=== PATIENT | male | born 2000 | race African-American/Black ===

== ENCOUNTER 2022-04-20 02:27 | Inpatient (IN) ==
[2022-04-20] MEDS ORDERED: SODIUM CHLORIDE 0.9% 1,000 ML IV STA (03:08)
[2022-04-20] MEDS ORDERED: INSULIN REGULAR 100 UNIT/ML IV STA (03:09)
[2022-04-20 03:46] LABS: Basophils # 0.2 10*3/uL (0.0-0.2); Basophils % 0.7 % (0.0-0.8); Eosinophils % 0.1 % (0.00-10.9); Hematocrit 36.6 VOL% (42.0-52.0); Hemoglobin 12.1 GM/DL (14.0-18.0); Immature Granulocytes % 4.1 %; Immature Granulocytes Absolute 0.99 #; Lymphocytes # 1.6 10*3/uL (1.4-4.0); Lymphocytes % 6.8 % (21.2-54.2); Mean Corpuscular HGB Conc 33.1 GM/DL (32-36); Mean Corpuscular Volume 87.8 FL (87-102); Mean Platelet Volume 9.4 FL (9.6-12.0); Monocytes # 2.8 10*3/uL (0.11-0.8); Monocytes % 11.5 % (1.7-12.7); Neutrophils % 76.8 % (38.7-73.9); Platelet Count 619 T/CUMM (130-400); Red Blood Count 4.17 MC/CUMM (3.8-5.5); Red Cell Distribution Width 12.1 % (9.3-17.3)
[2022-04-20 04:00] LABS: Albumin 1.8 G/DL (3.4-5.0); Bilirubin,Total 0.5 MG/DL (0.20-1.00); Calcium 9.5 MG/DL (8.5-10.1); Osmolality,Calculated 272.9 MOS/KG (273-304); Potassium 4.3 MMOL/L (3.5-5.1); Total Protein 8.5 G/DL (6.4-8.2)
[2022-04-20 04:14] LABS: Arterial Base Excess iSTAT 1 MMOL/L (-2.5-2.5); Arterial Bicarbonate iSTAT 25.4 MMOL/L (20-26); Arterial O2 Saturation iSTAT 96 % (95-100); Arterial PCO2 iSTAT 37 MM HG (35-48); Arterial PO2 iSTAT 79 MM HG (80-95); Arterial Total CO2 iSTAT 26 MMO/L (23-27); Arterial pH iSTAT 7.441 (7.35-7.45)
[2022-04-20 04:21] LABS: Band Neutrophils 1 % (0-10); Lymphocytes 2 % (20-55); Platelet Estimate Increased; Total Cells Counted 100
[2022-04-20 04:22] LABS: Hypochromia Slight; Microcytosis Slight
[2022-04-20] MEDS ORDERED: ONDANSETRON 4 MG/2 ML VIAL IV ONE (04:27)
[2022-04-20] MEDS ORDERED: MORPHINE 2 MG/1 ML SYRINGE IV STA (04:27)
[2022-04-20] MEDS ORDERED: cefTRIAXone 1,000 MG in SODIUM CHLORIDE 0.9% 100 ML IV STA (04:51)
[2022-04-20 05:17] LABS: Mucus,Urine Occasional /LPF (Occasional); Protein,Urine Negative (Negative); RBC,Urine 1 /HPF (0-4); Squamous Epithelial Cell,Urine Occasional /HPF (0-10); Urine Appearance Clear (Clear); Urine Color Yellow (Yellow); Urine pH 5.5 (4.5-8.0)
[2022-04-20 05:18] LABS: Bilirubin,Urine Negative (Negative); Blood, Urine Trace mg/dL (Negative); Glucose,Urine (UA) 500 mg/dL (Negative); Ketones,Urine >=160 mg/dL (Negative); Nitrite,Urine Negative (Negative); Urine Urobilinogen 0.2 eU/dL (<2.0)
[2022-04-20] MEDS ORDERED: VANCOMYCIN INJ 1,000 MG in SODIUM CHLORIDE 0.9% 250 ML IV STA (05:22)
[2022-04-20] MEDS ORDERED: hydrALAZINE 20 MG/1 ML VIAL IV PRN (06:54)
[2022-04-20] MEDS: MORPHINE 2 MG/1 ML SYRINGE IV PRN (08:36)
[2022-04-20] MEDS ORDERED: ceFAZolin 2,000 MG/50 ML DUPLEX IV ONE (08:37)
[2022-04-20] MEDS: SODIUM CHLORIDE 0.9% 1,000 ML IV SCH ×3 (08:37→18:09)
[2022-04-20] MEDS ORDERED: LIDOCAINE 2%/EPI 20 ML VIAL ONE (08:55)
[2022-04-20] MEDS ORDERED: BUPIVACAINE MPF 0.25% 10 ML VIAL ONE (08:55)
[2022-04-20] MEDS ORDERED: ONDANSETRON 4 MG/2 ML VIAL ONE (09:00)
[2022-04-20] MEDS ORDERED: LIDOCAINE 2% 5 ML VIAL ONE (09:00)
[2022-04-20] MEDS ORDERED: propofoL 200 MG/20 ML VIAL IV ONE (09:00)
[2022-04-20] MEDS ORDERED: SEVOFLURANE 1 UNIT/15 MINUTE INH ONE (09:01)
[2022-04-20] MEDS ORDERED: fentaNYL 100 MCG/2 ML VIAL ONE (09:01)
[2022-04-20] MEDS ORDERED: MIDAZOLAM 2 MG/2 ML VIAL ONE (09:01)
[2022-04-20] MEDS ORDERED: ONDANSETRON 4 MG/2 ML VIAL IV PRN (10:25)
[2022-04-20] MEDS ORDERED: HYDROmorphone 1 MG/1 ML SYRINGE IV PRN (10:25)
[2022-04-20] MEDS: INSULIN LISPRO 100 UNIT/ML SUBCUT SCH ×2 (11:33→19:32)
[2022-04-20] MEDS ORDERED: GLUCAGON 1 MG VIAL IM PRN (12:41)
[2022-04-20] MEDS ORDERED: DEXTROSE 10% 250 ML BAG IV PRN (12:46)
[2022-04-20] MEDS: PIPERACILLIN/TAZOBACTAM 3,375 MG in SODIUM CHLORIDE 0.9% 100 ML IV SCH ×2 (14:21→23:14)
[2022-04-20] MEDS: PANTOPRAZOLE 40 MG TABLET PO SCH (15:50)
[2022-04-20] MEDS: VANCOMYCIN INJ 1,000 MG in SODIUM CHLORIDE 0.9% 250 ML IV SCH (19:29)
[2022-04-20] MEDS: INSULIN GLARGINE 100 UNIT/ML SUBCUT SCH (21:21)
[2022-04-21] MEDS: INSULIN LISPRO 100 UNIT/ML SUBCUT SCH ×5 (00:15→23:06)
[2022-04-21] MEDS: SODIUM CHLORIDE 0.9% 1,000 ML IV SCH ×2 (04:58→19:29)
[2022-04-21 05:18] LABS: Basophils # 0.1 10*3/uL (0.0-0.2); Basophils % 0.5 % (0.0-0.8); Eosinophils # 0.1 10*3/uL (0.0-0.87); Eosinophils % 0.6 % (0.00-10.9); Hematocrit 27.7 VOL% (42.0-52.0); Hemoglobin 9.2 GM/DL (14.0-18.0); Immature Granulocytes % 4.2 %; Immature Granulocytes Absolute 0.93 #; Lymphocytes # 1.6 10*3/uL (1.4-4.0); Lymphocytes % 7.2 % (21.2-54.2); Mean Corpuscular HGB Conc 33.2 GM/DL (32-36); Mean Corpuscular Volume 89.4 FL (87-102); Mean Platelet Volume 9.2 FL (9.6-12.0); Monocytes # 2.2 10*3/uL (0.11-0.8); Monocytes % 9.9 % (1.7-12.7); Neutrophils % 77.6 % (38.7-73.9); Platelet Count 478 T/CUMM (130-400); Red Cell Distribution Width 12.3 % (9.3-17.3); White Blood Count 22.3 T/CUMM (4-12)
[2022-04-21 05:33] LABS: Calcium 8.4 MG/DL (8.5-10.1); Osmolality,Calculated 267.4 MOS/KG (273-304); Potassium 3.6 MMOL/L (3.5-5.1)
[2022-04-21 05:43] LABS: Band Neutrophils 10 % (0-10); Eosinophils 1 % (0-10); Hypochromia Slight; Lymphocytes 5 % (20-55); Total Cells Counted 100
[2022-04-21 05:44] LABS: Microcytosis Slight
[2022-04-21] MEDS: VANCOMYCIN INJ 1,000 MG in SODIUM CHLORIDE 0.9% 250 ML IV SCH ×2 (05:48→20:33)
[2022-04-21] MEDS: PIPERACILLIN/TAZOBACTAM 3,375 MG in SODIUM CHLORIDE 0.9% 100 ML IV SCH ×3 (06:55→22:55)
[2022-04-21] MEDS: MORPHINE 2 MG/1 ML SYRINGE IV PRN (07:37)
[2022-04-21] MEDS ORDERED: MAGNESIUM SULF RIDER 2 GM/50 ML PREMIX IV ONE (09:00)
[2022-04-21] MEDS: PANTOPRAZOLE 40 MG TABLET PO SCH (11:04)
[2022-04-21] MEDS: INSULIN GLARGINE 100 UNIT/ML SUBCUT SCH (20:33)
[2022-04-22 04:50] LABS: Basophils # 0.1 10*3/uL (0.0-0.2); Basophils % 0.5 % (0.0-0.8); Eosinophils # 0.2 10*3/uL (0.0-0.87); Hematocrit 25.3 VOL% (42.0-52.0); Hemoglobin 8.2 GM/DL (14.0-18.0); Immature Granulocytes % 5.4 %; Immature Granulocytes Absolute 1.04 #; Lymphocytes # 1.5 10*3/uL (1.4-4.0); Lymphocytes % 7.8 % (21.2-54.2); Mean Corpuscular HGB Conc 32.4 GM/DL (32-36); Mean Platelet Volume 8.9 FL (9.6-12.0); Monocytes # 1.6 10*3/uL (0.11-0.8); Monocytes % 8.3 % (1.7-12.7); Platelet Count 470 T/CUMM (130-400); Red Blood Count 2.81 MC/CUMM (3.8-5.5); Red Cell Distribution Width 12.4 % (9.3-17.3); White Blood Count 19.4 T/CUMM (4-12)
[2022-04-22 05:22] LABS: Band Neutrophils 4 % (0-10); Eosinophils 2 % (0-10); Lymphocytes 13 % (20-55); Total Cells Counted 100
[2022-04-22 05:23] LABS: Microcytosis Slight
[2022-04-22 05:24] LABS: Calcium 8.3 MG/DL (8.5-10.1); Osmolality,Calculated 274.1 MOS/KG (273-304); Potassium 3.7 MMOL/L (3.5-5.1)
[2022-04-22] MEDS: MORPHINE 2 MG/1 ML SYRINGE IV PRN (05:31)
[2022-04-22] MEDS: INSULIN LISPRO 100 UNIT/ML SUBCUT SCH ×3 (06:46→17:00)
[2022-04-22] MEDS: PIPERACILLIN/TAZOBACTAM 3,375 MG in SODIUM CHLORIDE 0.9% 100 ML IV SCH (06:47)
[2022-04-22] MEDS: SODIUM CHLORIDE 0.9% 1,000 ML IV SCH ×2 (08:49→21:46)
[2022-04-22] MEDS: PANTOPRAZOLE 40 MG TABLET PO SCH (08:49)
[2022-04-22] MEDS: VANCOMYCIN INJ 1,000 MG in SODIUM CHLORIDE 0.9% 250 ML IV SCH (09:04)
[2022-04-22] MEDS: ceFAZolin 2,000 MG/50 ML DUPLEX IV SCH ×2 (14:35→21:44)
[2022-04-22] MEDS: SODIUM HYPOCHLORITE 0.25% IRRIG 473 ML BOTTLE TOP SCH (15:25)
[2022-04-22] MEDS: ACETAMINOPHEN 325 MG TABLET PO PRN (16:56)
[2022-04-22] MEDS: INSULIN GLARGINE 100 UNIT/ML SUBCUT SCH (20:21)
[2022-04-23] MEDS: INSULIN LISPRO 100 UNIT/ML SUBCUT SCH ×5 (00:53→23:33)
[2022-04-23] MEDS: MORPHINE 2 MG/1 ML SYRINGE IV PRN ×4 (02:27→23:18)
[2022-04-23 05:54] LABS: Basophils # 0.1 10*3/uL (0.0-0.2); Basophils % 0.5 % (0.0-0.8); Eosinophils # 0.2 10*3/uL (0.0-0.87); Eosinophils % 1.2 % (0.00-10.9); Hematocrit 25.7 VOL% (42.0-52.0); Hemoglobin 8.1 GM/DL (14.0-18.0); Immature Granulocytes % 5.8 %; Immature Granulocytes Absolute 0.82 #; Lymphocytes # 1.6 10*3/uL (1.4-4.0); Lymphocytes % 10.9 % (21.2-54.2); Mean Corpuscular HGB Conc 31.5 GM/DL (32-36); Mean Corpuscular Volume 92.4 FL (87-102); Mean Platelet Volume 9.1 FL (9.6-12.0); Monocytes # 1.2 10*3/uL (0.11-0.8); Monocytes % 8.5 % (1.7-12.7); Neutrophils % 73.1 % (38.7-73.9); Platelet Count 555 T/CUMM (130-400); Red Blood Count 2.78 MC/CUMM (3.8-5.5); Red Cell Distribution Width 12.7 % (9.3-17.3); White Blood Count 14.3 T/CUMM (4-12)
[2022-04-23 06:17] LABS: Calcium 8.1 MG/DL (8.5-10.1); Osmolality,Calculated 278.4 MOS/KG (273-304); Potassium 3.5 MMOL/L (3.5-5.1)
[2022-04-23] MEDS: ceFAZolin 2,000 MG/50 ML DUPLEX IV SCH ×3 (06:17→21:07)
[2022-04-23 06:22] LABS: Eosinophils 1 % (0-10); Hypochromia Slight; Lymphocytes 17 % (20-55); Microcytosis Slight; Platelet Estimate Increased; Total Cells Counted 100
[2022-04-23] MEDS: PANTOPRAZOLE 40 MG TABLET PO SCH (08:27)
[2022-04-23] MEDS: SODIUM HYPOCHLORITE 0.25% IRRIG 473 ML BOTTLE TOP SCH (08:27)
[2022-04-23] MEDS ORDERED: INSULIN GLARGINE 100 UNIT/ML SUBCUT SCH (21:00)
[2022-04-23] MEDS: SODIUM CHLORIDE 0.9% 1,000 ML IV SCH (23:40)
[2022-04-24] MEDS: MORPHINE 2 MG/1 ML SYRINGE IV PRN ×3 (03:05→14:20)
[2022-04-24 04:41] LABS: Basophils # 0.1 10*3/uL (0.0-0.2); Basophils % 0.5 % (0.0-0.8); Eosinophils # 0.2 10*3/uL (0.0-0.87); Eosinophils % 1.2 % (0.00-10.9); Hematocrit 25.2 VOL% (42.0-52.0); Hemoglobin 7.9 GM/DL (14.0-18.0); Immature Granulocytes % 5.6 %; Immature Granulocytes Absolute 0.72 #; Lymphocytes # 1.6 10*3/uL (1.4-4.0); Lymphocytes % 12.4 % (21.2-54.2); Mean Corpuscular HGB Conc 31.3 GM/DL (32-36); Mean Corpuscular Volume 91.3 FL (87-102); Mean Platelet Volume 8.5 FL (9.6-12.0); Monocytes # 1.2 10*3/uL (0.11-0.8); Monocytes % 9.2 % (1.7-12.7); Neutrophils % 71.1 % (38.7-73.9); Platelet Count 575 T/CUMM (130-400); Red Blood Count 2.76 MC/CUMM (3.8-5.5); Red Cell Distribution Width 12.9 % (9.3-17.3); White Blood Count 12.9 T/CUMM (4-12)
[2022-04-24 05:04] LABS: Osmolality,Calculated 276.5 MOS/KG (273-304); Potassium 3.7 MMOL/L (3.5-5.1)
[2022-04-24] MEDS: ceFAZolin 2,000 MG/50 ML DUPLEX IV SCH ×3 (05:11→21:05)
[2022-04-24 05:28] LABS: Band Neutrophils 3 % (0-10); Hypochromia Slight; Lymphocytes 10 % (20-55); Microcytosis Slight; Myelocytes 1 %; Platelet Estimate Increased; Total Cells Counted 100
[2022-04-24] MEDS: INSULIN LISPRO 100 UNIT/ML SUBCUT SCH ×3 (06:30→17:00)
[2022-04-24] MEDS ORDERED: MAGNESIUM SULF RIDER 2 GM/50 ML PREMIX IV PRN (07:31)
[2022-04-24] MEDS: SODIUM HYPOCHLORITE 0.25% IRRIG 473 ML BOTTLE TOP SCH (08:49)
[2022-04-24] MEDS: PANTOPRAZOLE 40 MG TABLET PO SCH (08:50)
[2022-04-24 09:27] LABS: % Iron Saturation 28.1 % (18-50); Ferritin 1484.6 ng/mL (26-388)
[2022-04-24 09:35] LABS: Folate 8.08 NG/ML (5.38-24.0)
[2022-04-24] MEDS: MAGNESIUM SULF RIDER 4 GM/100 ML PREMIX IV PRN (10:11)
[2022-04-24] MEDS: INSULIN GLARGINE 100 UNIT/ML SUBCUT SCH ×2 (10:11→20:47)
[2022-04-25] MEDS: INSULIN LISPRO 100 UNIT/ML SUBCUT SCH ×4 (00:07→18:26)
[2022-04-25 05:11] LABS: Basophils # 0.1 10*3/uL (0.0-0.2); Basophils % 0.8 % (0.0-0.8); Eosinophils # 0.2 10*3/uL (0.0-0.87); Eosinophils % 1.2 % (0.00-10.9); Hematocrit 25.2 VOL% (42.0-52.0); Immature Granulocytes % 6.1 %; Immature Granulocytes Absolute 0.85 #; Mean Corpuscular HGB Conc 31.7 GM/DL (32-36); Mean Corpuscular Volume 93.3 FL (87-102); Mean Platelet Volume 8.9 FL (9.6-12.0); Monocytes # 1.5 10*3/uL (0.11-0.8); Monocytes % 10.6 % (1.7-12.7); Neutrophils % 67.3 % (38.7-73.9); Platelet Count 709 T/CUMM (130-400); White Blood Count 13.9 T/CUMM (4-12)
[2022-04-25 05:29] LABS: Calcium 8.2 MG/DL (8.5-10.1); Osmolality,Calculated 278.4 MOS/KG (273-304); Potassium 3.8 MMOL/L (3.5-5.1)
[2022-04-25 05:43] LABS: Band Neutrophils 1 % (0-10); Eosinophils 2 % (0-10); Lymphocytes 13 % (20-55); Metamyelocytes 1 %; Myelocytes 1 %; Total Cells Counted 100
[2022-04-25 05:44] LABS: Hypochromia Slight; Microcytosis Slight; Polychromasia Slight
[2022-04-25] MEDS: ceFAZolin 2,000 MG/50 ML DUPLEX IV SCH ×3 (06:05→21:21)
[2022-04-25] MEDS: MORPHINE 2 MG/1 ML SYRINGE IV PRN ×2 (09:14→21:21)
[2022-04-25] MEDS: PANTOPRAZOLE 40 MG TABLET PO SCH (09:34)
[2022-04-25] MEDS: SODIUM HYPOCHLORITE 0.25% IRRIG 473 ML BOTTLE TOP SCH (10:14)
[2022-04-25] MEDS: INSULIN GLARGINE 100 UNIT/ML SUBCUT SCH ×2 (11:29→21:20)
[2022-04-26] MEDS: MORPHINE 2 MG/1 ML SYRINGE IV PRN ×3 (01:17→18:32)
[2022-04-26 05:04] LABS: Basophils # 0.1 10*3/uL (0.0-0.2); Basophils % 0.6 % (0.0-0.8); Eosinophils # 0.2 10*3/uL (0.0-0.87); Eosinophils % 1.4 % (0.00-10.9); Hematocrit 26.3 VOL% (42.0-52.0); Hemoglobin 8.3 GM/DL (14.0-18.0); Immature Granulocytes % 6.6 %; Immature Granulocytes Absolute 0.93 #; Lymphocytes # 2.3 10*3/uL (1.4-4.0); Lymphocytes % 16.3 % (21.2-54.2); Mean Corpuscular HGB Conc 31.6 GM/DL (32-36); Mean Corpuscular Volume 93.6 FL (87-102); Mean Platelet Volume 8.5 FL (9.6-12.0); Monocytes # 1.2 10*3/uL (0.11-0.8); Monocytes % 8.4 % (1.7-12.7); Neutrophils % 66.7 % (38.7-73.9); Platelet Count 724 T/CUMM (130-400); Red Blood Count 2.81 MC/CUMM (3.8-5.5); Red Cell Distribution Width 13.1 % (9.3-17.3)
[2022-04-26 05:32] LABS: Calcium 8.2 MG/DL (8.5-10.1); Osmolality,Calculated 274.5 MOS/KG (273-304); Potassium 4.3 MMOL/L (3.5-5.1)
[2022-04-26 05:33] LABS: Eosinophils 3 % (0-10); Hypochromia Slight; Lymphocytes 18 % (20-55); Metamyelocytes 1 %; Microcytosis Slight; Polychromasia Slight; Total Cells Counted 100
[2022-04-26] MEDS: INSULIN LISPRO 100 UNIT/ML SUBCUT SCH ×4 (06:13→18:31)
[2022-04-26] MEDS: ceFAZolin 2,000 MG/50 ML DUPLEX IV SCH ×3 (06:13→21:13)
[2022-04-26] MEDS: INSULIN GLARGINE 100 UNIT/ML SUBCUT SCH ×2 (09:37→21:12)
[2022-04-26] MEDS: PANTOPRAZOLE 40 MG TABLET PO SCH (09:37)
[2022-04-26] MEDS: SODIUM HYPOCHLORITE 0.25% IRRIG 473 ML BOTTLE TOP SCH (12:41)
[2022-04-27] MEDS: INSULIN LISPRO 100 UNIT/ML SUBCUT SCH ×4 (01:47→18:19)
[2022-04-27 04:33] LABS: Basophils # 0.1 10*3/uL (0.0-0.2); Basophils % 0.7 % (0.0-0.8); Eosinophils # 0.2 10*3/uL (0.0-0.87); Eosinophils % 1.8 % (0.00-10.9); Hematocrit 25.8 VOL% (42.0-52.0); Immature Granulocytes % 8.4 %; Immature Granulocytes Absolute 1.03 #; Lymphocytes # 2.4 10*3/uL (1.4-4.0); Lymphocytes % 19.6 % (21.2-54.2); Mean Corpuscular Volume 93.8 FL (87-102); Mean Platelet Volume 8.6 FL (9.6-12.0); Monocytes # 1.1 10*3/uL (0.11-0.8); NRBC # 0.02 10*3/uL; Neutrophils % 60.5 % (38.7-73.9); Platelet Count 757 T/CUMM (130-400); Red Blood Count 2.75 MC/CUMM (3.8-5.5); Red Cell Distribution Width 13.3 % (9.3-17.3); White Blood Count 12.2 T/CUMM (4-12)
[2022-04-27 05:00] LABS: Eosinophils 2 % (0-10); Hypochromia Slight; Lymphocytes 22 % (20-55); Microcytosis Slight; Platelet Estimate Adequate; Total Cells Counted 100
[2022-04-27 05:06] LABS: Calcium 8.2 MG/DL (8.5-10.1); Osmolality,Calculated 276.3 MOS/KG (273-304); Potassium 4.1 MMOL/L (3.5-5.1)
[2022-04-27] MEDS: ceFAZolin 2,000 MG/50 ML DUPLEX IV SCH ×3 (06:07→21:55)
[2022-04-27] MEDS: PANTOPRAZOLE 40 MG TABLET PO SCH (08:38)
[2022-04-27] MEDS: INSULIN GLARGINE 100 UNIT/ML SUBCUT SCH ×2 (08:38→21:51)
[2022-04-27] MEDS: SODIUM HYPOCHLORITE 0.25% IRRIG 473 ML BOTTLE TOP SCH (09:47)
[2022-04-27] MEDS: MORPHINE 2 MG/1 ML SYRINGE IV PRN (21:55)
[2022-04-28] MEDS: INSULIN LISPRO 100 UNIT/ML SUBCUT SCH ×4 (01:39→18:15)
[2022-04-28] MEDS: ceFAZolin 2,000 MG/50 ML DUPLEX IV SCH ×3 (06:01→21:47)
[2022-04-28] MEDS: PANTOPRAZOLE 40 MG TABLET PO SCH (09:11)
[2022-04-28] MEDS: INSULIN GLARGINE 100 UNIT/ML SUBCUT SCH ×2 (09:11→21:48)
[2022-04-28] MEDS: ONDANSETRON 4 MG/2 ML VIAL IV PRN (09:12)
[2022-04-28] MEDS: SODIUM HYPOCHLORITE 0.25% IRRIG 473 ML BOTTLE TOP SCH (09:15)
[2022-04-29] MEDS: INSULIN LISPRO 100 UNIT/ML SUBCUT SCH ×5 (01:43→21:27)
[2022-04-29] MEDS: ceFAZolin 2,000 MG/50 ML DUPLEX IV SCH ×3 (05:26→21:28)
[2022-04-29] MEDS: PANTOPRAZOLE 40 MG TABLET PO SCH (09:08)
[2022-04-29] MEDS: INSULIN GLARGINE 100 UNIT/ML SUBCUT SCH ×2 (09:08→21:26)
[2022-04-29] MEDS: SODIUM HYPOCHLORITE 0.25% IRRIG 473 ML BOTTLE TOP SCH (09:09)
[2022-04-29] MEDS: MENTHOL/ZINC OXIDE OINT 71 GM JAR TOP SCH ×2 (14:56→21:26)
[2022-04-29] MEDS: ENOXAPARIN 40 MG/0.4 ML SYRINGE SUBCUT SCH (16:35)
[2022-04-29] MEDS: MORPHINE 2 MG/1 ML SYRINGE IV PRN (21:26)
[2022-04-29] MEDS: ACETAMINOPHEN 325 MG TABLET PO PRN (21:26)
[2022-04-30] MEDS: MORPHINE 2 MG/1 ML SYRINGE IV PRN (04:11)
[2022-04-30] MEDS: ceFAZolin 2,000 MG/50 ML DUPLEX IV SCH ×3 (05:00→21:03)
[2022-04-30] MEDS: ONDANSETRON 4 MG/2 ML VIAL IV PRN ×3 (05:24→21:57)
[2022-04-30 06:11] LABS: Basophils # 0.1 10*3/uL (0.0-0.2); Basophils % 0.9 % (0.0-0.8); Eosinophils # 0.3 10*3/uL (0.0-0.87); Eosinophils % 2.5 % (0.00-10.9); Hematocrit 25.7 VOL% (42.0-52.0); Hemoglobin 7.9 GM/DL (14.0-18.0); Immature Granulocytes % 4.7 %; Immature Granulocytes Absolute 0.48 #; Lymphocytes # 2.2 10*3/uL (1.4-4.0); Lymphocytes % 21.7 % (21.2-54.2); Mean Corpuscular HGB Conc 30.7 GM/DL (32-36); Mean Corpuscular Volume 95.5 FL (87-102); Mean Platelet Volume 8.6 FL (9.6-12.0); Monocytes # 0.7 10*3/uL (0.11-0.8); Monocytes % 6.4 % (1.7-12.7); Neutrophils % 63.8 % (38.7-73.9); Platelet Count 762 T/CUMM (130-400); Red Blood Count 2.69 MC/CUMM (3.8-5.5); Red Cell Distribution Width 14.3 % (9.3-17.3); White Blood Count 10.1 T/CUMM (4-12)
[2022-04-30 06:18] LABS: Calcium 8.9 MG/DL (8.5-10.1); Osmolality,Calculated 278.4 MOS/KG (273-304)
[2022-04-30 07:52] LABS: % Iron Saturation 14.3 % (18-50); Ferritin 539.7 ng/mL (26-388)
[2022-04-30] MEDS: INSULIN GLARGINE 100 UNIT/ML SUBCUT SCH ×2 (09:06→20:58)
[2022-04-30] MEDS: PANTOPRAZOLE 40 MG TABLET PO SCH (09:06)
[2022-04-30] MEDS: INSULIN LISPRO 100 UNIT/ML SUBCUT SCH ×4 (09:07→21:00)
[2022-04-30] MEDS: MENTHOL/ZINC OXIDE OINT 71 GM JAR TOP SCH ×2 (09:09→21:00)
[2022-04-30] MEDS: SODIUM HYPOCHLORITE 0.25% IRRIG 473 ML BOTTLE TOP SCH (09:09)
[2022-04-30] MEDS: FERROUS SULFATE 325 MG TABLET PO SCH ×2 (14:04→20:57)
[2022-04-30] MEDS: ENOXAPARIN 40 MG/0.4 ML SYRINGE SUBCUT SCH (16:19)
[2022-05-01] MEDS: ceFAZolin 2,000 MG/50 ML DUPLEX IV SCH ×3 (06:32→22:01)
[2022-05-01] MEDS: INSULIN LISPRO 100 UNIT/ML SUBCUT SCH ×4 (08:07→22:02)
[2022-05-01 08:52] LABS: Basophils # 0.1 10*3/uL (0.0-0.2); Basophils % 0.9 % (0.0-0.8); Eosinophils # 0.2 10*3/uL (0.0-0.87); Hemoglobin 8.4 GM/DL (14.0-18.0); Immature Granulocytes % 2.3 %; Lymphocytes # 1.5 10*3/uL (1.4-4.0); Lymphocytes % 17.8 % (21.2-54.2); Mean Corpuscular HGB Conc 31.1 GM/DL (32-36); Mean Corpuscular Volume 94.7 FL (87-102); Mean Platelet Volume 8.2 FL (9.6-12.0); Monocytes # 0.5 10*3/uL (0.11-0.8); Monocytes % 5.5 % (1.7-12.7); Neutrophils % 71.5 % (38.7-73.9); Platelet Count 679 T/CUMM (130-400); Red Blood Count 2.85 MC/CUMM (3.8-5.5); Red Cell Distribution Width 14.6 % (9.3-17.3); White Blood Count 8.7 T/CUMM (4-12)
[2022-05-01 09:13] LABS: Calcium 8.4 MG/DL (8.5-10.1); Osmolality,Calculated 281.3 MOS/KG (273-304); Potassium 3.9 MMOL/L (3.5-5.1)
[2022-05-01] MEDS: FERROUS SULFATE 325 MG TABLET PO SCH (09:17)
[2022-05-01] MEDS: SODIUM HYPOCHLORITE 0.25% IRRIG 473 ML BOTTLE TOP SCH (09:17)
[2022-05-01] MEDS: MENTHOL/ZINC OXIDE OINT 71 GM JAR TOP SCH ×2 (09:17→22:01)
[2022-05-01] MEDS: INSULIN GLARGINE 100 UNIT/ML SUBCUT SCH ×2 (09:17→22:02)
[2022-05-01] MEDS: PANTOPRAZOLE 40 MG TABLET PO SCH (09:18)
[2022-05-01] MEDS ORDERED: MAGNESIUM SULF INJ 3 GM in SODIUM CHLORIDE 0.9% 100 ML IV ONE (09:35)
[2022-05-01] MEDS: MAGNESIUM SULF RIDER 4 GM/100 ML PREMIX IV PRN (09:54)
[2022-05-01] MEDS: ENOXAPARIN 40 MG/0.4 ML SYRINGE SUBCUT SCH (15:29)
[2022-05-01] MEDS: MORPHINE 2 MG/1 ML SYRINGE IV PRN (22:10)
[2022-05-02] MEDS: ceFAZolin 2,000 MG/50 ML DUPLEX IV SCH ×3 (05:02→21:58)
[2022-05-02] MEDS: MORPHINE 2 MG/1 ML SYRINGE IV PRN (05:05)
[2022-05-02 06:21] LABS: Basophils # 0.1 10*3/uL (0.0-0.2); Basophils % 1.2 % (0.0-0.8); Eosinophils # 0.3 10*3/uL (0.0-0.87); Eosinophils % 3.5 % (0.00-10.9); Hematocrit 26.7 VOL% (42.0-52.0); Hemoglobin 8.1 GM/DL (14.0-18.0); Immature Granulocytes Absolute 0.23 #; Lymphocytes # 1.8 10*3/uL (1.4-4.0); Lymphocytes % 23.3 % (21.2-54.2); Mean Corpuscular HGB Conc 30.3 GM/DL (32-36); Mean Platelet Volume 8.3 FL (9.6-12.0); Monocytes # 0.5 10*3/uL (0.11-0.8); Platelet Count 682 T/CUMM (130-400); Red Blood Count 2.78 MC/CUMM (3.8-5.5); Red Cell Distribution Width 14.8 % (9.3-17.3); White Blood Count 7.8 T/CUMM (4-12)
[2022-05-02 06:35] LABS: Calcium 8.7 MG/DL (8.5-10.1); Osmolality,Calculated 281.4 MOS/KG (273-304); Potassium 4.1 MMOL/L (3.5-5.1)
[2022-05-02] MEDS: PANTOPRAZOLE 40 MG TABLET PO SCH (10:51)
[2022-05-02] MEDS: FERRIC GLUCONATE COMPLEX 125 MG in SODIUM CHLORIDE 0.9% 100 ML IV SCH (10:51)
[2022-05-02] MEDS: MENTHOL/ZINC OXIDE OINT 71 GM JAR TOP SCH ×2 (10:52→22:02)
[2022-05-02] MEDS: SODIUM HYPOCHLORITE 0.25% IRRIG 473 ML BOTTLE TOP SCH (10:52)
[2022-05-02] MEDS: INSULIN GLARGINE 100 UNIT/ML SUBCUT SCH ×2 (10:52→22:06)
[2022-05-02] MEDS: INSULIN LISPRO 100 UNIT/ML SUBCUT SCH ×3 (11:33→22:08)
[2022-05-02] MEDS: ENOXAPARIN 40 MG/0.4 ML SYRINGE SUBCUT SCH (15:38)
[2022-05-03] MEDS: MORPHINE 2 MG/1 ML SYRINGE IV PRN ×3 (00:57→21:33)
[2022-05-03] MEDS: ceFAZolin 2,000 MG/50 ML DUPLEX IV SCH ×3 (05:33→21:31)
[2022-05-03 06:18] LABS: Basophils # 0.1 10*3/uL (0.0-0.2); Basophils % 1.1 % (0.0-0.8); Eosinophils # 0.2 10*3/uL (0.0-0.87); Eosinophils % 3.5 % (0.00-10.9); Hematocrit 26.8 VOL% (42.0-52.0); Hemoglobin 8.4 GM/DL (14.0-18.0); Immature Granulocytes % 1.8 %; Immature Granulocytes Absolute 0.12 #; Lymphocytes # 1.7 10*3/uL (1.4-4.0); Lymphocytes % 26.1 % (21.2-54.2); Mean Corpuscular HGB Conc 31.3 GM/DL (32-36); Mean Corpuscular Volume 96.1 FL (87-102); Mean Platelet Volume 8.1 FL (9.6-12.0); Monocytes # 0.5 10*3/uL (0.11-0.8); Monocytes % 6.8 % (1.7-12.7); Neutrophils % 60.7 % (38.7-73.9); Platelet Count 601 T/CUMM (130-400); Red Blood Count 2.79 MC/CUMM (3.8-5.5); Red Cell Distribution Width 14.9 % (9.3-17.3); White Blood Count 6.6 T/CUMM (4-12)
[2022-05-03 06:36] LABS: Calcium 8.5 MG/DL (8.5-10.1); Osmolality,Calculated 279.1 MOS/KG (273-304); Potassium 3.9 MMOL/L (3.5-5.1)
[2022-05-03] MEDS: INSULIN LISPRO 100 UNIT/ML SUBCUT SCH ×4 (08:18→21:32)
[2022-05-03] MEDS: MENTHOL/ZINC OXIDE OINT 71 GM JAR TOP SCH (09:45)
[2022-05-03] MEDS: PANTOPRAZOLE 40 MG TABLET PO SCH (09:45)
[2022-05-03] MEDS: SODIUM HYPOCHLORITE 0.25% IRRIG 473 ML BOTTLE TOP SCH (09:45)
[2022-05-03] MEDS: FERRIC GLUCONATE COMPLEX 125 MG in SODIUM CHLORIDE 0.9% 100 ML IV SCH (09:45)
[2022-05-03] MEDS: INSULIN GLARGINE 100 UNIT/ML SUBCUT SCH ×2 (09:45→21:31)
[2022-05-03] MEDS: ENOXAPARIN 40 MG/0.4 ML SYRINGE SUBCUT SCH (15:30)
[2022-05-04] MEDS: MENTHOL/ZINC OXIDE OINT 71 GM JAR TOP SCH ×3 (00:30→22:04)
[2022-05-04 04:40] LABS: Basophils # 0.1 10*3/uL (0.0-0.2); Basophils % 1.1 % (0.0-0.8); Eosinophils # 0.3 10*3/uL (0.0-0.87); Eosinophils % 4.1 % (0.00-10.9); Hematocrit 27.5 VOL% (42.0-52.0); Hemoglobin 8.4 GM/DL (14.0-18.0); Immature Granulocytes % 2.1 %; Immature Granulocytes Absolute 0.14 #; Lymphocytes # 2.2 10*3/uL (1.4-4.0); Lymphocytes % 32.8 % (21.2-54.2); Mean Corpuscular HGB Conc 30.5 GM/DL (32-36); Mean Corpuscular Volume 97.5 FL (87-102); Mean Platelet Volume 8.2 FL (9.6-12.0); Monocytes # 0.5 10*3/uL (0.11-0.8); Monocytes % 7.8 % (1.7-12.7); Neutrophils % 52.1 % (38.7-73.9); Platelet Count 566 T/CUMM (130-400); Red Blood Count 2.82 MC/CUMM (3.8-5.5); Red Cell Distribution Width 14.8 % (9.3-17.3); White Blood Count 6.6 T/CUMM (4-12)
[2022-05-04 04:58] LABS: Calcium 8.7 MG/DL (8.5-10.1); Osmolality,Calculated 282.1 MOS/KG (273-304); Potassium 3.8 MMOL/L (3.5-5.1)
[2022-05-04] MEDS: ceFAZolin 2,000 MG/50 ML DUPLEX IV SCH ×3 (07:23→22:02)
[2022-05-04] MEDS: PANTOPRAZOLE 40 MG TABLET PO SCH (08:36)
[2022-05-04] MEDS: FERRIC GLUCONATE COMPLEX 125 MG in SODIUM CHLORIDE 0.9% 100 ML IV SCH (08:37)
[2022-05-04] MEDS: INSULIN GLARGINE 100 UNIT/ML SUBCUT SCH ×2 (08:37→22:03)
[2022-05-04] MEDS: INSULIN LISPRO 100 UNIT/ML SUBCUT SCH ×4 (08:41→22:02)
[2022-05-04] MEDS: SODIUM HYPOCHLORITE 0.25% IRRIG 473 ML BOTTLE TOP SCH (08:42)
[2022-05-04] MEDS: ENOXAPARIN 40 MG/0.4 ML SYRINGE SUBCUT SCH (17:28)
[2022-05-04] MEDS: MORPHINE 2 MG/1 ML SYRINGE IV PRN (22:04)
[2022-05-05] MEDS: ceFAZolin 2,000 MG/50 ML DUPLEX IV SCH ×3 (06:01→23:25)
[2022-05-05 06:27] LABS: Basophils # 0.1 10*3/uL (0.0-0.2); Basophils % 0.8 % (0.0-0.8); Eosinophils # 0.3 10*3/uL (0.0-0.87); Eosinophils % 3.7 % (0.00-10.9); Hematocrit 28.6 VOL% (42.0-52.0); Hemoglobin 8.9 GM/DL (14.0-18.0); Immature Granulocytes % 1.2 %; Immature Granulocytes Absolute 0.09 #; Lymphocytes # 1.5 10*3/uL (1.4-4.0); Lymphocytes % 21.2 % (21.2-54.2); Mean Corpuscular HGB Conc 31.1 GM/DL (32-36); Mean Corpuscular Volume 95.7 FL (87-102); Mean Platelet Volume 8.5 FL (9.6-12.0); Monocytes # 0.5 10*3/uL (0.11-0.8); Monocytes % 7.3 % (1.7-12.7); Neutrophils % 65.8 % (38.7-73.9); Platelet Count 553 T/CUMM (130-400); Red Blood Count 2.99 MC/CUMM (3.8-5.5); White Blood Count 7.3 T/CUMM (4-12)
[2022-05-05 06:41] LABS: Osmolality,Calculated 280.5 MOS/KG (273-304); Potassium 4.3 MMOL/L (3.5-5.1)
[2022-05-05] MEDS: INSULIN LISPRO 100 UNIT/ML SUBCUT SCH ×4 (08:50→21:03)
[2022-05-05] MEDS: PANTOPRAZOLE 40 MG TABLET PO SCH (08:50)
[2022-05-05] MEDS: FERRIC GLUCONATE COMPLEX 125 MG in SODIUM CHLORIDE 0.9% 100 ML IV SCH (08:50)
[2022-05-05] MEDS: INSULIN GLARGINE 100 UNIT/ML SUBCUT SCH (08:50)
[2022-05-05] MEDS: MENTHOL/ZINC OXIDE OINT 71 GM JAR TOP SCH ×2 (09:19→21:10)
[2022-05-05] MEDS: SODIUM HYPOCHLORITE 0.25% IRRIG 473 ML BOTTLE TOP SCH (09:19)
[2022-05-05] MEDS: ENOXAPARIN 40 MG/0.4 ML SYRINGE SUBCUT SCH (16:16)
[2022-05-05] MEDS: ONDANSETRON 4 MG/2 ML VIAL IV PRN (23:57)
[2022-05-05] MEDS ORDERED: ZALEPLON 5 MG CAPSULE PO ONE (23:57)
[2022-05-06] MEDS: ceFAZolin 2,000 MG/50 ML DUPLEX IV SCH ×3 (05:24→23:07)
[2022-05-06 06:47] LABS: Basophils # 0.1 10*3/uL (0.0-0.2); Basophils % 1.1 % (0.0-0.8); Eosinophils # 0.2 10*3/uL (0.0-0.87); Eosinophils % 4.2 % (0.00-10.9); Hemoglobin 9.2 GM/DL (14.0-18.0); Immature Granulocytes % 1.5 %; Immature Granulocytes Absolute 0.08 #; Lymphocytes # 1.6 10*3/uL (1.4-4.0); Lymphocytes % 30.9 % (21.2-54.2); Mean Corpuscular HGB Conc 30.7 GM/DL (32-36); Mean Corpuscular Volume 96.8 FL (87-102); Mean Platelet Volume 8.5 FL (9.6-12.0); Monocytes # 0.5 10*3/uL (0.11-0.8); Monocytes % 9.5 % (1.7-12.7); Neutrophils % 52.8 % (38.7-73.9); Platelet Count 504 T/CUMM (130-400); Red Cell Distribution Width 15.2 % (9.3-17.3); White Blood Count 5.3 T/CUMM (4-12)
[2022-05-06 07:09] LABS: Platelet Estimate Increased
[2022-05-06 07:10] LABS: Anisocytosis 1+; Hypochromia 1+; Macrocytosis 1+; Tear Drop Cells Few
[2022-05-06 07:17] LABS: Calcium 8.5 MG/DL (8.5-10.1); Osmolality,Calculated 284.3 MOS/KG (273-304); Potassium 4.4 MMOL/L (3.5-5.1)
[2022-05-06] MEDS: INSULIN GLARGINE 100 UNIT/ML SUBCUT SCH (09:14)
[2022-05-06] MEDS: PANTOPRAZOLE 40 MG TABLET PO SCH (09:15)
[2022-05-06] MEDS: INSULIN LISPRO 100 UNIT/ML SUBCUT SCH ×4 (09:15→20:56)
[2022-05-06] MEDS: SODIUM HYPOCHLORITE 0.25% IRRIG 473 ML BOTTLE TOP SCH (09:16)
[2022-05-06] MEDS: MENTHOL/ZINC OXIDE OINT 71 GM JAR TOP SCH ×2 (09:16→20:55)
[2022-05-06] MEDS: ENOXAPARIN 40 MG/0.4 ML SYRINGE SUBCUT SCH (15:03)
[2022-05-06] MEDS ORDERED: ZALEPLON 5 MG CAPSULE PO ONE (22:47)
[2022-05-07] MEDS: ceFAZolin 2,000 MG/50 ML DUPLEX IV SCH (06:09)
[2022-05-07] MEDS: ACETAMINOPHEN 325 MG TABLET PO PRN (06:10)
[2022-05-07 07:36] VITALS: BP 116/72
[2022-05-07] MEDS: SODIUM HYPOCHLORITE 0.25% IRRIG 473 ML BOTTLE TOP SCH (08:33)
[2022-05-07] MEDS: MENTHOL/ZINC OXIDE OINT 71 GM JAR TOP SCH (08:33)
[2022-05-07] MEDS: PANTOPRAZOLE 40 MG TABLET PO SCH (08:54)
[2022-05-07] MEDS: INSULIN GLARGINE 100 UNIT/ML SUBCUT SCH (08:56)
[2022-05-07] MEDS: INSULIN LISPRO 100 UNIT/ML SUBCUT SCH ×2 (08:57→11:43)
== END 2022-05-07 13:04 | disposition home or self-care (01) | DRG 951 ==
LOC: EDBD → EDUNIT# → N.ED 02:27 → SUATTDRO 06:52 → N.EDINP 06:52 → N.3E 08:28
PROVIDERS: ADMIT Internal Medicine; ATTEND Internal Medicine Geriatric Medicine